=== PATIENT | male | born 1965 | race Caucasian/White ===

== ENCOUNTER 2024-06-19 17:51 | Emergency (ER) | payer SELFPAY ==
[2024-06-19] MEDS ORDERED: Sodium Chloride 0.9% 10 ML Syringe FLUSH PRN (20:05)
[2024-06-19] MEDS: Iopamidol 755 Mg/ML 100 ML Bottle IVPUSH ONE (20:07)
[2024-06-19 20:21] LABS: BASOPHILS PERCENT AUTO 0.2 % (0.0-1.0); EOSINOPHILS PERCENT AUTO 1.2 % (1.0-3.0); HEMOGLOBIN 15.2 g/dL (14.0-18.0); LYMPHOCYTES PERCENT AUTO 31.4 % (20.5-50.1); MEAN CORPUSCULAR HGB CONC 35.3 g/dL (33.0-35.0); MEAN CORPUSCULAR VOLUME 93.5 fL (80-100); MONOCYTES PERCENT AUTO 17.4 % (2-8); NEUTROPHILS PERCENT AUTO 49.8 % (42.2-75.2); PLATELET COUNT,PLT 253 10^3/uL (150-450); WHITE BLOOD CELL COUNT,WBC 5.8 10^3/uL (5.0-10.0)
[2024-06-19 20:44] LABS: A/G RATIO 1.2; ALANINE AMINOTRANSFERASE,ALT 30 U/L (16-63); ALKALINE PHOSPHATASE 77 U/L (46-116); ANION GAP 10.5 mEq/L (7-13); ASPARTATE AMNIOTRANSFERASE,AST 17 U/L (15-37); BILIRUBIN TOTAL 0.4 mg/dL (0.2-1.0); BLOOD UREA NITROGEN,BUN 26 mg/dL (7-18); BUN/CREATININE RATIO 24.5 (No establ ref range); CALCIUM 9.1 mg/dL (8.5-10.1); CARBON DIOXIDE,CO2 30 mmol/L (21-32); CHLORIDE,CL 98 mmol/L (98-107); CREATININE 1.06 mg/dL (0.70-1.30); ESTIMATED GFR 80 mL/min (>=60); GLUCOSE RANDOM 106 mg/dL (70-99); MAGNESIUM 2.1 mg/dL (1.8-2.4); POTASSIUM,K 3.5 mmol/L (3.5-5.1); PROTEIN TOTAL,TP 7.4 g/dL (6.4-8.2); SODIUM,NA 135 mmol/L (136-145); TSH ULTRASENSITIVE 2.49 uIU/mL (0.36-3.74)
[2024-06-19 21:40] VITALS: BP 155/95; PULSE 51
== END 2024-06-19 22:18 | disposition home or self-care (01) ==
LOC: DL.ED 17:51
DX: R20.2 Paresthesia of skin (principal); I10 Essential (primary) hypertension
CPT/HCPCS: 36415; 70450; 70496; 70498; 80053; 83735; 84443; 85025; 99284; Q9967